=== PATIENT | male | born 1970 | race Caucasian/White ===

== ENCOUNTER 2018-07-15 15:29 | Inpatient (IN) | payer OTHER ==
--- NOTE | 2018-07-15 16:08 | CT ---
EXAM: CT brain without contrast HISTORY: Syncope at the gasoline station with head trauma COMPARISON: None TECHNIQUE: Multiple contiguous axial images were obtained and a CT of the brain without contrast. FINDINGS: There are small areas of hyperdensity along the bilateral frontal convexities which may rep resent a small amount of subdural hemorrhage. There are also serpiginous areas of hyperdensity in the bilateral frontal lobes which may represent a small amount of subarachnoid blood. No midline shif t or downward herniation is seen. No hydrocephalus or intraventricular hemorrhage is seen. The calvarium and overlying soft tissues are unremarkable. The visualized paranasal sinuses and masto id air cells are well aerated. IMPRESSION: Small bilateral subdural hemorrhage/subarachnoid hemorrhage.
--- NOTE | 2018-07-15 16:14 | CT ---
CT cervical spine. HISTORY: Syncope. Axial images are obtained with coronal and sagittal reconstructions. CT images demonstrate cervical s becki alignment to be within normal limits. There is some superior endplate height loss at the C7 level. This may represent an old traumatic event. This does not appear to be acute as anterior and po sterior aspects of the vertebral body adjacent to the superior endplate deformity do not appear to have significant lucencies or associated fractures. No other significant abnormality seen. Central canal and neural foramen are patent. IMPRESSION: C7 area superior endplate collapse possibly from old injury. If there is concern for acute C7 injury correlation with MRI may be of use to help differentiate between acute or old changes. Transcribed Date/Time: 07/15/2018 4:16 PM
[2018-07-15 16:19] LABS: #Eosinphils 0.1 thou/uL (0.0-0.7); #Lymphocytes 1.8 thou/uL (1.20-3.40); #Monocytes 0.8 thou/uL (0.11-0.59); #Neutrophils 5.4 thou/uL (1.40-6.50); %Basophils 0.2 % (0.0-1.0); %Eosinophils 1.2 % (0.0-10.0); %Lymphocytes 22.1 % (21.0-51.0); %Monocytes 9.5 % (0.0-10.0); Hemoglobin 10.8 g/dL (14.0-18.0); Mean Corpuscular HGB CONC 34.1 g/dL (32.0-36.0); Mean Corpuscular Hemoglobin 33.3 pg (27.0-31.0); Mean Corpuscular Volume 97.7 fL (78.0-98.0); Mean Platelet Volume 6.7 fL (7.4-10.4); Platelet Count 308 thou/uL (130-400); RBC Distribution Width 11.1 % (11.5-14.5); Red Blood Cell (RBC) Count 3.26 mill/uL (4.70-6.10); White Blood Cell (WBC) Count 8.1 thou/uL (4.8-10.8)
[2018-07-15] MEDS ORDERED: Ondansetron PF 4 MG/2 ML Vial ONE (16:38)
--- NOTE | 2018-07-15 16:42 | RAD ---
AP view chest history: Syncope. Chest is obtained on 07/15/2018. The lungs are well aerated. No evidence of active intrathoracic disease seen. No evidence of effusion s, pneumonia or pneumothorax seen. IMPRESSION: Unremarkable AP view chest.
[2018-07-15 16:51] LABS: ALT (SGPT) 19 U/L (8-55); AST (SGOT) 16 U/L (5-34); Albumin 3.3 g/dL (3.5-5.0); Alkaline Phosphatase 57 U/L (40-150); Anion Gap 11 mmol/L (10-20); BUN (Urea Nitrogen) 13 mg/dL (8.9-20.6); Bilirubin, Total 0.3 mg/dL (0.2-1.2); Calc. Creatinine Clearance 0 mL/min (70-130); Calcium 8.1 mg/dL (7.8-10.44); Carbon Dioxide 26 mmol/L (22-29); Chloride 111 mmol/L (98-107); Estimated GFR-MDRD 72; Globulin 1.5 g/dL (2.4-3.5); Glucose 104 mg/dL (70-105); Potassium 4.5 mmol/L (3.5-5.1); Protein, Total 4.8 g/dL (6.0-8.3); Sodium 143 mmol/L (136-145)
[2018-07-15] MEDS ORDERED: Promethazine HCl 25 MG/ML VIAL ONE (16:55)
[2018-07-15 17:22] LABS: INR-International Normal Ratio 1.1; Prothrombin Time 14.7 SEC (12.0-14.7)
--- NOTE | 2018-07-15 18:00 | CT ---
CT brain. HISTORY: Sudden onset mental changes. Noncontrast enhanced CT images of the brain obtained. Comparison made to previous exam from earlier in the day. Bilateral frontal areas of acute hemorrhage seen possibly in the subarachnoid spaces. There is an are a of hemorrhage in the inferior aspect of the left frontal lobe. In addition posterior left temporal lobe areas of hemorrhage also seen. These may represent areas of intraparenchymal hemorrhage s. Findings are concerning that these may be post traumatic brain injuries. Correlate with history. The left frontal intraparenchymal hemorrhages appear to have increased since the previous comparison exam and are now more conspicuous. In addition posterior left temporal hemorrhages are also now visualized previously not detected. IMPRESSION: Intraparenchymal and subarachnoid areas of hemorrhages.
--- NOTE | 2018-07-15 19:23 | HP ---
TRAUMA SURGEON: Dr. Christie. CONSULTING PHYSICIAN: Dr. Dent. HISTORY OF PRESENT ILLNESS: The patient is a 48-year-old male, who presented to the emergency department after a syncopal fall at the gas station. The patient's reported that he had donated blood earlier today. She was not there during the time of the syncopal episode, but bystanders reported the patient's saying that he did not feel well before he syncopized. On evaluation to the emergency department, the patient's GCS was 15 and he had no focal neurological deficits. He received a CT scan of the head and C-spine as well as a chest x-ray, which demonstrated small bilateral subdural/subarachnoid hemorrhages. Upon my evaluation, the patient had a decline in GCS by 1 to 2. He had -1 for eyes and -1 to 2 for verbal. The patient's at bedside reported that his mentation had declined further than when they first arrived to the emergency department. The patient also had a bout of emesis on the scene as well as right before my evaluation. He denies any pain, photophobia, or phonophobia. Denies changes in vision. He is able to follow commands in all extremities. Pupils are equal, round, and reactive to light, 3 to 2 bilaterally. REVIEW OF SYSTEMS: All additional 10-point review of systems negative except as indicated above. PAST MEDICAL HISTORY: PTSD. PAST SURGICAL HISTORY: Hemorrhoid surgery. SOCIAL HISTORY: The patient's reports the patient vapes, but denies alcohol or drug use. The patient also works for [employer]. MEDICATIONS: Wellbutrin. ALLERGIES: NO KNOWN DRUG ALLERGIES. PHYSICAL EXAMINATION: VITAL SIGNS: Temperature 98.3, pulse 97, respirations 18, oxygen saturation 96 % on room air, blood pressure 112/80. PRIMARY SURVEY: Airway intact. Adequate breath sounds bilaterally. 2+ distal pulses palpable in the bilateral radials, femorals, and DPs. GCS is 13 to 14. Eyes 3, verbal 4, motor 6. No other focal neurological deficits noted. Pupils equal, round, reactive to light, 3 to 2 bilaterally. No lacerations, abrasions, or signs of external bleeding. SECONDARY SURVEY: HEAD: Normocephalic and atraumatic. No gross palpable skull deformities or tenderness. EYES: Pupils 3 to 2, pupils equal, round, reactive to light bilaterally. ENT: No hemotympanum. No epistaxis. No septal hematoma. Midface stable to manipulation. No blood in the oropharynx. Dentition is intact. No anterior neck injury/crepitus/tenderness. C-SPINE: No step-offs or deformities, nontender, C-collar not in place. CHEST: Nontender. No crepitus. No abrasions or ecchymosis noted. Equal chest movement. ABDOMEN: Soft, nontender, nondistended. PELVIS: Stable to palpation, nontender. No abrasions or ecchymosis. RECTAL: Deferred. GENITOURINARY: Deferred. EXTREMITIES: 2+ pulses in the bilateral femorals, and DPs. No gross deformities. No abrasions or ecchymosis noted. BACK/SPINE: No step-offs, deformities, or tenderness to palpation of the thoracic or lumbar spine. No abrasions or ecchymosis noted. NEUROLOGIC: 5/5 strength in bilateral dean of boys, plantar flexion, and dorsiflexion. Gross normal sensation x4 extremities. GCS 13 to 14, -1 for verbal, -1 for eyes. LABORATORY FINDINGS: White count 8.1, hemoglobin 10.8, hematocrit 31.9, platelets 308. INR 1.1. Sodium 143, potassium 4.5, chloride 111, carbon dioxide 26, BUN 13, creatinine 1.09, glucose 104, total bilirubin 0.3, AST 16, ALT 19. DIAGNOSTIC FINDINGS: CT of the brain demonstrated small bilateral subdural hemorrhages/subarachnoid hemorrhages. CT scan of the C-spine demonstrates C7 area superior implant collapse possibly from old injury. If there is a concern for acute C7 injury correlating with MRI may be of use to help differentiate between acute and old changes. Chest x-ray demonstrates unremarkable AP view of the chest. Repeat CT scan of the brain completed at 5:44 p.m. demonstrates intraparenchymal and subarachnoid areas of hemorrhage. The left frontal intraparenchymal hemorrhage appears to have increased since the previous comparison exam and is now more conspicuous. In addition, prior left temporal hemorrhages are now visualized, previously not detected. ASSESSMENT: 1. Status post syncopal fall from standing. 2. Bilateral frontal subdural/subarachnoid hemorrhages, intraparenchymal hemorrhages, new left-sided temporal hemorrhage. 3. History of posttraumatic stress disorder. PLAN: The patient will be admitted to the CCU with q.1 hour neuro checks. Neurosurgery has been updated on the patient's decline in mentation and imaging new areas of intraparenchymal hemorrhage and temporal hemorrhages. They will come and see the patient shortly. In the meantime, we will keep the patient n.p.o., elevate the head of the bed at 30 degrees. Goal systolic blood pressure is less than 170. He will have normal saline at 120 an hour. Pain control with scheduled Ofirmev and p.r.n. morphine. He will have gastric stress ulcer prophylaxis, but we will hold chemo-VTE prophylaxis at this time. The patient will work with Physical and Occupational Therapy as early as tomorrow when his mentation and plan are stabilized. Speech language pathology has also been consulted for the patient to do a cognitive evaluation. Syncope is likely due to the patient giving blood earlier today. He has a hemoglobin of 10.8. However, we will also complete an echo to further rule out cardiac dysfunction. EKG completed in the emergency department demonstrated no ectopy and no ST changes, essentially was within normal limits. The patient was discussed with Dr. Christie before this dictation. [facility] ID: [id number] [facility]
[2018-07-15] MEDS ORDERED: Acetaminophen 1,000 MG in Premix Bag 1 BAG IVPB SCH ×2 (20:45→22:11)
[2018-07-15] MEDS ORDERED: Famotidine/PF 20 mg/2ml Vial SLOW IVP SCH (21:00)
[2018-07-15] MEDS ORDERED: Promethazine HCl 25 MG/ML VIAL IM PRN (22:11)
[2018-07-15] MEDS ORDERED: hydrALAZINE 20 MG/ML VIAL SLOW IVP PRN (22:11)
[2018-07-15] MEDS ORDERED: Morphine 4 MG/ML VIAL SLOW IVP PRN ×2 (22:11)
[2018-07-15] MEDS ORDERED: Dextrose 5% in Water 1,000 ML IV PRN (22:11)
[2018-07-15] MEDS ORDERED: Dextrose 50% Abboject 50 ML SYRINGE SLOW IVP PRN (22:11)
[2018-07-15] MEDS: Sodium Chloride 0.9% 1,000 ML IV SCH (22:45)
[2018-07-15 23:04] VITALS: BMI 24.4
[2018-07-16] MEDS ORDERED: Famotidine/PF 20 mg/2ml Vial SLOW IVP SCH (01:45)
[2018-07-16] MEDS: Acetaminophen 1,000 MG in Premix Bag 1 BAG IVPB SCH ×4 (02:04→21:05)
--- NOTE | 2018-07-16 02:10 | CON ---
DATE OF CONSULTATION: 07/15/2018 HISTORY OF PRESENT ILLNESS: Mr. Everett is a 48-year-old male, who was brought to the emergency department this afternoon following a syncopal episode. The patient donated blood earlier today and within an hour after he was pumping gas, spoke to someone near him saying that he did not feel good and then proceeded to fall straight to the ground striking his head on the concrete. The patient vomited on site once and has vomited a few times in the ER. While in the emergency department, a CT scan of the head was performed showing subarachnoid and intraparenchymal hemorrhage. Neurosurgery was consulted. The patient is lethargic, mumbling, and drowsy. He will wake and become fairly alert, answering questions appropriately most of the time, yes or no are more easy for him. He has answered several questions inappropriately, stating that he works for [employer], however, he works for [employer], and this is quite concerning to his . The patient is moving all 4 extremities well. He is only complaining of a headache and nausea. He did vomit once while I was in the room. Cranial nerves are intact. REVIEW OF SYSTEMS: A 10-point review of systems has been completed and is negative other than stated in the above HPI. ALLERGIES: NO KNOWN DRUG ALLERGIES. CURRENT MEDICATIONS: Wellbutrin. PAST MEDICAL HISTORY: Denies. PAST SURGICAL HISTORY: The patient denies surgical history. PSYCHIATRIC HISTORY: The patient states depression. SOCIAL HISTORY: The patient lives with his and 's parents, whom they take care of. He quit smoking tobacco, however, he vapes. He drinks alcohol rarely and does not use any other illicit drugs. PHYSICAL EXAMINATION: VITAL SIGNS: Temperature 98.3, blood pressure 112/80, pulse 97, respirations 18 , and O2 stats 96% on room air. CONSTITUTIONAL: The patient is drowsy, appears nontoxic. No visible distress. Normotensive and afebrile. HEENT: Head is normocephalic. There is an abrasion in the posterior aspect of his head and he had some mild swelling to the right temporal region. Pupils are equal, round, and reactive to light. Extraocular movements are intact. Hearing is intact. Moist mucous membranes. RESPIRATIONS: Normal work of breathing on room air. Symmetric chest rise. EXTREMITIES: The patient is moving all 4 extremities. There are no deformities. 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 NEUROLOGIC: The patient is alert and oriented to person and place. He does know the year. The patient's speech is spontaneous, not fluent. There is some mumbling and confused word. His short-term memory is limited to the event. Long-term memory is intact. The patient did answer some questions completely inappropriately and started asking his about brackets, which did not make sense to her question. There are no focal motor or sensory deficits. Cranial nerves are intact. There is no pronator drift. [id number] is smooth bilaterally. IMAGING STUDIES: CT of the brain, there is bifrontal areas of acute hemorrhage, possibly subarachnoid, inferior aspect of the left frontal lobe and posterior left temporal lobe. There is a left frontal intraparenchymal hemorrhage as well as left temporal hemorrhage. These are slightly changed compared to scan previous 2 [address] before. [address] CT, C7 area superior endplate collapse possibly from old injury. If there is concern for acute C7 injury, correlation with MRI may be useful. ASSESSMENT AND PLAN: Mr. Everett is a 48-year-old male, who had a syncopal episode following blood donation this evening. He has sustained multiple Intracranial hemorrhages following the fall. He is not on any blood thinners. He is confused, but follows commands and understands. The Trauma Team is going to admit him to the ICU. We will make sure he is hydrated with normal saline. Neuro checks every 2 hours. Maintain normal blood pressure and we will get a repeat CT in the morning by keeping head of bed at 30 degrees. Any further questions, please contact Neurosurgery Team. Job ID: [id number] [facility] SYSTEM[facility]et
[2018-07-16] MEDS: Sodium Chloride 0.9% 1,000 ML IV SCH ×2 (06:12→15:40)
[2018-07-16 06:37] LABS: #Monocytes 1.1 thou/uL (0.11-0.59); #Neutrophils 10.8 thou/uL (1.40-6.50); %Basophils 0.2 % (0.0-1.0); %Eosinophils 0.2 % (0.0-10.0); %Lymphocytes 7.5 % (21.0-51.0); %Monocytes 8.3 % (0.0-10.0); %Neutrophils 83.8 % (42.0-75.0); Hemoglobin 10.2 g/dL (14.0-18.0); Mean Corpuscular HGB CONC 33.6 g/dL (32.0-36.0); Mean Corpuscular Volume 98.2 fL (78.0-98.0); Mean Platelet Volume 6.7 fL (7.4-10.4); Platelet Count 298 thou/uL (130-400); RBC Distribution Width 11.2 % (11.5-14.5); White Blood Cell (WBC) Count 12.9 thou/uL (4.8-10.8)
[2018-07-16 06:58] LABS: Anion Gap 10 mmol/L (10-20); BUN (Urea Nitrogen) 11 mg/dL (8.9-20.6); Calc. Creatinine Clearance 112 mL/min (70-130); Calcium 8.5 mg/dL (7.8-10.44); Carbon Dioxide 24 mmol/L (22-29); Chloride 108 mmol/L (98-107); Estimated GFR-MDRD Greater than 90; Glucose 120 mg/dL (70-105); Potassium 4.1 mmol/L (3.5-5.1); Sodium 138 mmol/L (136-145)
[2018-07-16] MEDS: Famotidine/PF 20 mg/2ml Vial SLOW IVP SCH ×2 (08:33→21:05)
--- NOTE | 2018-07-16 08:38 | PRG ---
DATE OF SERVICE: 07/16/2018 I saw Shivam Everett in the ICU today. He gave blood yesterday. On the way home, stopped to get gas. He had a syncopal episode and struck the back of his head. He was brought to the emergency department, where CT examination of the brain revealed some subdural blood, some traumatic subarachnoid blood, mainly contusions in the inferior frontal lobe on the left side and the posterior temporal lobe on the left side. Subsequent scans have been done showing maturation of the contusions, as expected. Mr. Everett complains of fatigue and headache, and on his bed this morning. Reveal blood pressure in the 120s, heart rate in the 90s. Other vital signs are stable. On examination, Mr. Everett awakes to his name. He nods and uses a few words to answer questions appropriately. His cranial nerves and motor and sensory systems are working well, but he is quite tired. My plan for Mr. Everett is to have 2 subsequent scans stable with no further blossoming of the contusions. Then, we need to make sure he is safe for his activities of daily living before he is released from the hospital. If things are going to get worse with headache for the first few days and I talked to them about limiting his free water intake. While he is in the hospital, we will monitor his sodium carefully and make sure he is not getting any hypotonic fluid. Job ID: [id number] [facility]
--- NOTE | 2018-07-16 10:13 | CT ---
CT OF THE BRAIN WITHOUT CONTRAST: Date: 07/16/18 COMPARISON: 07/15/18. HISTORY: Frontal contusions. Intracranial hemorrhage. TECHNIQUE: Multiple contiguous axial images were obtained in a CT of the brain without contrast. FINDINGS: There are evolving bilateral frontal contusions, left greater than right. These have slightly worsene d compared to the prior examination. No midline shift or downward herniation is seen. There is a smal l amount of subdural hemorrhage along the right frontoparietal convexity, which has not changed in si ze compared to the prior examination. There is also a small, stable extra-axial hyperdensity along th e left frontal convexity, which likely represents a small area of subdural hemorrhage that is stable. The calvarium and overlying soft tissues are unremarkable. The visualized paranasal sinuses and masto id air cells are well aerated. IMPRESSION: 1. Evolving bilateral frontal contusions, which have slightly worsened. 2. Stable subdural hemorrhage along the right frontal convexity. 3. Stable small left frontal extra-axial hemorrhage. POS: C
[2018-07-16] MEDS ORDERED: Morphine 4 MG/ML VIAL SLOW IVP PRN ×2 (11:42)
--- NOTE | 2018-07-16 11:44 | PRG ---
DATE OF SERVICE: 07/16/2018 SUBJECTIVE: A 48-year-old male patient, admitted late last night for intracranial hemorrhage, frontal contusions, stable subdural hemorrhage, right frontal convexity, left stable frontal extra-axial hemorrhage. The patient is repetitive and tends to want to get out of bed and not follow directions. He has been evaluated by Speech for safe swallowing. He has been seen by Neurosurgery and no intervention is warranted. He is in ICU. OBJECTIVE: VITAL SIGNS: Blood pressure 113/74, pulse 87. LUNGS: Clear to auscultation. CARDIAC: Regular rate and rhythm without murmur or gallop. ABDOMEN: Soft, nontender. ASSESSMENT AND PLAN: The patient is stable with close head injury. We will monitor him in ICU due to his lack of cooperation and impulsiveness. Hopefully, he can be transferred to the floor in the next day or two. Agreed with management per Neurosurgery Job ID: [id number]
[2018-07-16] MEDS: traMADol HCl 50 MG TAB PO PRN ×2 (12:52→21:05)
[2018-07-16] MEDS: Ondansetron PF 4 MG/2 ML Vial IVP PRN (12:53)
[2018-07-17] MEDS: Sodium Chloride 0.9% 1,000 ML IV SCH ×3 (01:10→09:22)
[2018-07-17] MEDS: Acetaminophen 1,000 MG in Premix Bag 1 BAG IVPB SCH (03:51)
[2018-07-17 04:44] LABS: #Lymphocytes 1.3 thou/uL (1.20-3.40); #Monocytes 1.1 thou/uL (0.11-0.59); #Neutrophils 9.9 thou/uL (1.40-6.50); %Basophils 0.1 % (0.0-1.0); %Eosinophils 0.2 % (0.0-10.0); %Lymphocytes 10.1 % (21.0-51.0); %Monocytes 8.9 % (0.0-10.0); %Neutrophils 80.7 % (42.0-75.0); Hemoglobin 9.1 g/dL (14.0-18.0); Mean Corpuscular HGB CONC 34.1 g/dL (32.0-36.0); Mean Corpuscular Hemoglobin 33.5 pg (27.0-31.0); Mean Corpuscular Volume 98.4 fL (78.0-98.0); Platelet Count 265 thou/uL (130-400); RBC Distribution Width 11.1 % (11.5-14.5); White Blood Cell (WBC) Count 12.3 thou/uL (4.8-10.8)
[2018-07-17 05:08] LABS: Anion Gap 9 mmol/L (10-20); BUN (Urea Nitrogen) 8 mg/dL (8.9-20.6); Calc. Creatinine Clearance 116 mL/min (70-130); Calcium 8.2 mg/dL (7.8-10.44); Carbon Dioxide 25 mmol/L (22-29); Chloride 106 mmol/L (98-107); Estimated GFR-MDRD Greater than 90; Glucose 134 mg/dL (70-105); Magnesium 1.9 mg/dL (1.6-2.6); Phosphorus 2.1 mg/dL (2.3-4.7); Potassium 3.7 mmol/L (3.5-5.1); Sodium 136 mmol/L (136-145)
--- NOTE | 2018-07-17 07:12 | CT ---
CT HEAD NONCONTRAST: INDICATION: Intracranial hemorrhage, followup. FINDINGS: There is redemonstration of multifocal posttraumatic parenchymal hemorrhagic foci of the bilateral fr ontal lobes more notable on the left with associated edema, grossly stable. Slight interval progress ion of volume of small volume extraaxial hemorrhage overlying the right cerebral convexity measuring approximately 4 mm compared to 3 mm in a similar location on prior exam. Tiny extraaxial hemorrhagic focus overlying the left lateral frontal convexity remains. Small extraaxial hemorrhagic focus is s uggested overlying the left temporal lobe anteriorly and there is a slight degree of heterogeneity of each anterior pole in the temporal lobes. These findings may be on the basis of subtle posttraumati c change, limited in assessment due to the beam-hardening artifact of these regions. There is no new midline shift of significance seen. Tiny locules of air density are seen adjacent th e left mastoid air cells, difficult to reliably localize. This could relate to volume averaging of a ir cells, although the possibility of a tiny volume of intracranial air is not excluded. No addition al significant interval detrimental change. IMPRESSION: 1. Slight interval increase in volume of intraaxial hemorrhage overlying the right convexity, approx imately 4 mm in thickness. 2. Redemonstration of bifrontal, left greater than right, posttraumatic parenchymal hemorrhage and e greta. 3. Anterior bitemporal subtle heterogeneity. There is a slight extraaxial density overlying the ant erior pole left temporal lobe indicating small nidus of extraaxial hemorrhage. The possibility of bi lateral anterior temporal lobe posttraumatic contusions is not excluded. In addition, there are subt le, tiny air density foci adjacent the left tegmen mastoideum. This could relate to volume averaging of the mastoid air cells, although the possibility of minute, adjacent intracranial air locules eldon ot be entirely excluded, in light of the concomitant abnormalities. Recommend continued imaging follo wup. POS: NWK
--- NOTE | 2018-07-17 08:01 | PRG ---
DATE OF SERVICE: 07/17/2018 I saw Mr. Everett in his ICU room this morning. He is much more awake and alert than he was yesterday. He is sitting at the bedside, watching television, and speaking with his . Mr. Everett does not remember what happened to him at all. He seems mildly disinhibited, but this is my first time meeting him with him being very alert. Blood pressures this morning 120s/80s, heart rate is 88 and the other vitals are stable. Mr. Everett is awake. He is alert. He is answering questions. He has normal cranial nerve function. There is no neglect. There are no lateralizing motor deficits. No pronator drift. I reviewed multiple CT images of the brain. His frontal contusions continue to blossom with vasogenic edema, as expected. There is a small subdural over the right temporal area that does not cause any mass effect. I had a long discussion with Mr. Everett and his . We need to keep his sodium in the normal range, and high-normal is even better. We will limit his fluid intake and fluid restrict him to about 1250 mL in 24 hours. We will reduce IV fluids, these have to be at least isotonic. He should not have hypotonic fluid. I do not want him drinking copious amounts of water, eating ice given the fact that this could increase the swelling around his contusions. Mr. Everett would do better with some mobilization, but he needs help with that. He can be transferred from the ICU to regular floor care. Job ID: [id number]
[2018-07-17] MEDS: Famotidine/PF 20 mg/2ml Vial SLOW IVP SCH ×2 (08:18→20:18)
[2018-07-17] MEDS ORDERED: Sodium Chloride 0.9% 1,000 ML IV SCH (08:19)
[2018-07-17] MEDS: traMADol HCl 50 MG TAB PO PRN ×3 (09:21→20:25)
--- NOTE | 2018-07-17 12:03 | PRG ---
DATE OF SERVICE: 07/17/2018 SUBJECTIVE: Mr. Everett is a 48-year-old man, who is status post near syncopal fall from a standing position. The patient sustained bilateral frontal hemorrhagic contusions as well as small convexity right subdural hematoma. This morning, he is awake and alert. His Leanne Coma Scale is at 14 to 15. He tolerates diet. Reports no photophobia or vertigo. OBJECTIVE: VITAL SIGNS: This morning includes blood pressure 126/67, pulse is 91, respiratory rate is 19, temperature is 99 degrees Fahrenheit, and oxygen saturation is 97% on 2 L by nasal cannula oxygen. HEENT: Pupils are equal, round, and reactive to light and accommodation. HEART: Reveals regular rate and rhythm. No murmurs or gallops auscultated. LUNGS: Clear to auscultation bilaterally. Breathing, regular and nonlabored. ABDOMEN: Soft, nontender, and nondistended. EXTREMITIES: Reveal 2+ radial and pedal pulses bilaterally. No ankle edema is present. NEUROLOGIC: Reveals no focal deficits present. LABORATORY FINDINGS: Today include a CBC with stable white blood cell count of 12,300 and hemoglobin and hematocrit 9.1 and 26.6 respectively. Platelet count is 265,000. Metabolic profile; sodium is 136, potassium is 3.7, chloride is 106, bicarb is 25, BUN is 8, creatinine is 0.84, glucose is 134, magnesium is 1.9, and phosphorus is 2.1. IMPRESSION: 1. Post injury day #2 status post near syncopal ground level fall. 2. Acute contrecoup bifrontal cerebral contusion. 3. Small right convexity subdural hematoma, neurologically improving. PLAN: 1. Increase activity per Physical and Occupational Therapy. 2. The patient is certainly hemodynamically stable for transfer to general surgical floor. 3. Anticipate discharge within the next 24 to 48 hours. Job ID: [id number]
[2018-07-17] MEDS: Acetaminophen 500 MG TAB PO PRN ×2 (12:46→18:44)
[2018-07-17] MEDS: Ondansetron PF 4 MG/2 ML Vial IVP PRN ×2 (12:47→18:44)
[2018-07-17] MEDS: buPROPion 75 MG TAB PO SCH (20:18)
[2018-07-17] MEDS ORDERED: Melatonin 3 MG TAB PO SCH (21:00)
[2018-07-18 05:27] LABS: Sodium 140 mmol/L (136-145)
--- NOTE | 2018-07-18 07:34 | CT ---
CT OF HEAD NONCONTRAST: INDICATION: Intracranial hemorrhage, fall. FINDINGS: Grossly stable small right subdural hematoma is present. Focal hyperdensity overlying the left front al convexity is again seen. Posttraumatic multifocal parenchymal hemorrhage or contusions of the fro ntal lobes, left greater than right are again seen with associated edema. A slight volume of linear hemorrhagic density in this region of the anterior left cranial fossa could relate to a small volume of overlying subdural hemorrhage adjacent to the contused brain parenchyma. There is redemonstration of mild heterogeneity at the anterior temporal regions more notable on the left with probable small volume extraaxial hematoma overlying the anterior left temporal pole. IMPRESSION: Grossly stable posttraumatic intracranial hemorrhage, both intraaxial and extraaxial, as discussed ab ove. POS: MAHIN
--- NOTE | 2018-07-18 07:50 | PRG ---
DATE OF SERVICE: 07/18/2018 I saw Mr. Everett in his hospital room this morning. He is feeling well and had a good night's rest. His vitals have been stable. Mr. Everett is awake. He answers questions appropriately. He is mildly disinhibited, but I do not know his personality from before the injury. There is no cranial neuropathies or lateralized motor or sensory deficits. I worry about judgment in Mr. Everett given bifrontal contusions. If he does leave the hospital today to go home, I suggest his spouse monitor him on a one-to-one basis for at least the next 2 to 3 weeks. This may require her being off work. I am happy to fill out the [facility] paperwork should that be required. Our office is going to make a followup appointment. Job ID: [id number]
[2018-07-18] MEDS: buPROPion 75 MG TAB PO SCH (09:20)
[2018-07-18] MEDS: traMADol HCl 50 MG TAB PO PRN (09:21)
[2018-07-18] MEDS: Sodium Chloride 0.9% 1,000 ML IV SCH (09:22)
[2018-07-18] MEDS: Famotidine/PF 20 mg/2ml Vial SLOW IVP SCH (09:22)
[2018-07-18] MEDS ORDERED: Scopolamine 1.5 mg/72 hour Patch TD SCH (11:00)
[2018-07-18 15:05] VITALS: BP 135/84; TEMP 98.3
--- NOTE | 2018-07-19 04:36 | DIS ---
DATE OF ADMISSION: 07/15/2018 DATE OF DISCHARGE: 07/18/2018 ADMITTING PHYSICIAN: Jerry Christie MD. DISCHARGING PHYSICIAN: Brandyn Kong DO. CONSULTING NEUROSURGEON: Dr. Dent. ADMITTING DIAGNOSES: 1. Traumatic brain injury. 2. Fall. 3. Bilateral frontal subdural and subarachnoid hemorrhages. 4. History of posttraumatic stress disorder. DISCHARGING DIAGNOSES: 1. Bilateral frontal subdural and subarachnoid hemorrhages. 2. Intraparenchymal hemorrhages. 3. Left temporal hemorrhage. 4. Syncope from fall. HOSPITAL COURSE: Mr. Everett is a 48-year-old male whom is a baseline hypofunctioning, presenting after a syncope collapse and a fall resulting in traumatic brain injury. He was admitted to the ICU initially for q.1 hour neuro checks. Neurosurgery was consulted. No surgical intervention. The patient remained hemodynamically stable. He was subsequently admitted to the surgery viera. He is alert and oriented. There is some concern about his judgment given the frontal contusions. Repeat brain CT ultimately shows no significant change. Echocardiogram secondary to the syncope, shows an EF of 55% to 60% with no wall motion abnormalities. PA pressure is 35. No diastolic dysfunction was noted. The patient's initial troponin is less than 0.01. His most recent labs are sodium of 140 today, his hemoglobin has ultimately remained stable, INR is 1.1. He is not on any anticoagulation. The patient was going to be discharged to rehab facility. However, he wants to go home. His is at home around the clock taking care of her mother, said that she is able to take care of him too have one-to-one sitting. This was recommended by Neurosurgery. She verbalized understanding of the same and to closely watch the patient. He has tolerated diet well. He has been hemodynamically stable and appropriate to go home. He will follow up with Neurosurgery within 2 weeks, they are going to call him for an appointment. I have discussed the case with Neurosurgery PA. Further, he will need a repeat head CT in 2 weeks and they are going to call to help schedule this for later this to the patient. The patient's at the bedside and they verbalized understanding. The patient can also follow up in the Trauma Clinic as needed. DISCHARGE MEDICATIONS: 1. Tylenol 650 mg every 4 hours as needed. 2. Tramadol 50 mg every 4 hours as needed. 3. Wellbutrin 150 mg b.i.d. 4. Melatonin 10 mg nightly. 5. Scopolamine patch for dizziness 1.5 mg patch every 3 days. PHYSICAL EXAMINATION: On the date of discharge, VITAL SIGNS: Temperature is 98.3, blood pressure 135/84, heart rate is 86, breathing 16 times per minute, saturating 95% on room air. GENERAL: A 48-year-old male, sitting up in bed, in no acute distress. HEENT: Normocephalic, atraumatic. Trachea is midline. No JVD is appreciated. RESPIRATORY: Equal rise and fall, bilateral breath sounds. Clear to auscultation bilaterally. CARDIOVASCULAR: Regular rate and rhythm. ABDOMEN: Soft and nontender. PELVIS: Stable. MUSCULOSKELETAL: Moves extremities. NEUROLOGIC: The patient is alert and oriented to person, place, time and events. GCS is actually 15 now. No focal deficits are appreciated. He is somewhat withdrawn in the room. PSYCH: Somewhat withdrawn, but otherwise normal mood and affect. SKIN: [place], warm, and dry. DISCHARGE DISPOSITION: Home with family. Followup will be with Dr. Dent or his staff within 2 weeks. Trauma surgery as needed. I have updated the patient and the patient's the bedside and answered all questions. I have coordinated care with PILY from [facility]. The patient was seen by Dr. Brandyn Kong. Greater than 40 minutes was taken in discharge planning. Job ID: [id number]
== END 2018-07-18 17:09 | disposition home or self-care (01) | DRG 85 ==
LOC: ERS 15:29 → CCU 22:41 → SURG A 07-17 12:24
PROVIDERS: ADMIT Specialist; ATTEND Specialist
DX: S06.5X0A Traumatic subdural hemorrhage without loss of consciousness, initial encounter (principal); G93.6 Cerebral edema; S06.6X0A Traumatic subarachnoid hemorrhage without loss of consciousness, initial encounter; Y92.9 Unspecified place or not applicable; W18.30XA Fall on same level, unspecified, initial encounter; F32.9 Major depressive disorder, single episode, unspecified; F43.10 Post-traumatic stress disorder, unspecified; Z79.899 Other long term (current) drug therapy
CPT/HCPCS: 36415; 70450; 71045; 72125; 80048; 80053; 83735; 84100; 84295; 84484; 85025; 85610; 85730; 93005; 93306; 96361; 96374; 96375; G0390; J0131; J2405; J2550; S0028